=== PATIENT | male | born 1975 | race American Indian/Alaskan Native ===

== ENCOUNTER 2018-10-07 14:16 | Emergency (ER) | payer SELFPAY ==
[2018-10-07 14:32] VITALS: BP 125/78
--- NOTE | 2018-10-07 15:10 | Emergency Department Report ---
ED General Adult HPI - General Chief complaint: Chest Pain Stated complaint: CHEST PAIN/CHILLS Time Seen by Provider: 10/07/18 14:54 Source: patient Mode of arrival: Ambulatory Limitations: No Limitations - History of Present Illness Initial comments: Mr. Hawley is a very pleasant healthy 43-year-old male who has had flulike symptoms for the last few days. He's had body aches headache chills productive cough with chest tightness. +profuse diarrhea. Over the last several weeks, Mr. Hawley has noticed pressure in lower abdomen, urinary hesitation and frequent urination without dysuria. Now more pronounced when he appears to be dehydrated. -: Gradual, days(s) (2) Severity scale (0 -10): 5 Quality: aching Consistency: constant Improves with: none Associated Symptoms: fever/chills, malaise - Related Data Previous Rx's Medication Instructions Recorded Last Taken Type Loperamide HCl [Imodium A-D] 2 tab PO QID 2 Days #16 capsule 10/07/18 Unknown Rx Oseltamivir [Tamiflu] 75 mg PO BID 5 Days #10 cap 10/07/18 Unknown Rx Allergies Allergy/AdvReac Type Severity Reaction Status Date / Time shellfish derived Allergy Swelling Verified 10/07/18 14:27 ED Review of Systems ROS: Stated complaint: CHEST PAIN/CHILLS Other details as noted in HPI Comment: All other systems reviewed and negative Constitutional: chills, fever, malaise Respiratory: cough Cardiovascular: chest pain Gastrointestinal: diarrhea Genitourinary: urgency ED Past Medical Hx - Past Medical History Previous Medical History?: No - Surgical History Past Surgical History?: Yes Additional Surgical History: right testicle removed- 1997. 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, Also consults in medical facilities - Medications Home Medications: Home Medications Medication Instructions Recorded Confirmed Last Taken Type Loperamide HCl [Imodium A-D] 2 tab PO QID 2 Days #16 capsule 10/07/18 Unknown Rx Oseltamivir [Tamiflu] 75 mg PO BID 5 Days #10 cap 10/07/18 Unknown Rx ED Physical Exam - General Limitations: No Limitations General appearance: alert, in no apparent distress - Head Head exam: Present: atraumatic, normocephalic - Eye Eye exam: Present: normal appearance - ENT ENT exam: Present: mucous membranes moist - Neck Neck exam: Present: normal inspection, full ROM. Absent: tenderness, meningismus - Respiratory Respiratory exam: Present: normal lung sounds bilaterally. Absent: respiratory distress, wheezes, rales, rhonchi - Cardiovascular Cardiovascular Exam: Present: regular rate, normal rhythm, normal heart sounds. Absent: systolic murmur, diastolic murmur, rubs, gallop - GI/Abdominal GI/Abdominal exam: Present: soft, normal bowel sounds. Absent: distended, tenderness, guarding, rebound - Rectal Rectal exam: Present: deferred - Extremities Exam Extremities exam: Present: normal inspection - Back Exam Back exam: Present: normal inspection - Neurological Exam Neurological exam: Present: alert, oriented X3 - Psychiatric Psychiatric exam: Present: normal affect, normal mood - Skin Skin exam: Present: warm, dry, intact, normal color. Absent: rash ED Course Vital Signs 10/07/18 10/07/18 14:27 14:52 Temperature 99.2 F Pulse Rate 95 H Respiratory 18 16 Rate Blood Pressure 125/78 O2 Sat by Pulse 100 Oximetry ED Medical Decision Making - EKG Data EKG shows normal: sinus rhythm, axis, intervals, QRS complexes, ST-T waves Rate: normal - EKG Data Interpretation: normal EKG 10/07/18 15:09 Time Obtained 1437 NSR nl rate nl axis nl intervals no ST-T signs of ischemia no ST elevation rate 95 beats a minute - Medical Decision Making Clinical diagnoses of influenza, chest pain associated with cough without indication of pneumonia or pericarditis. Normal EKG. Prescription: Tamiflu and loperamide Urinary symptoms suggestive of benign prostate hypertrophy. Given referral to outpatient physician for follow-up. Critical care attestation.: If time is entered above; I have spent that time in minutes in the direct care of this critically ill patient, excluding procedure time. ED Disposition Clinical Impression: Influenza Disposition: DC-01 TO HOME OR SELFCARE Is pt being admited?: No Does the pt Need Aspirin: No Condition: Stable Instructions: Influenza (ED), Benign Prostatic Hypertrophy (ED) Prescriptions: Loperamide HCl [Imodium A-D] 2 tab PO QID 2 Days #16 capsule Oseltamivir [Tamiflu] 75 mg PO BID 5 Days #10 cap Referrals: DEMETRICE ZURITA DO [Staff Physician] - 3-5 Days Forms: Work/School Release Form(ED)
== END 2018-10-07 15:26 | disposition home or self-care (01) ==
LOC: ED 14:16
DX: J11.1 Influenza due to unidentified influenza virus with other respiratory manifestations (principal); Z91.013 Allergy to seafood
CPT/HCPCS: 93005; 93010; 99282

== ENCOUNTER 2020-01-30 20:47 | Observation (INO) | payer MEDICARE ==
[2020-01-30] MEDS ORDERED: ASPIRIN 325 MG TAB PO ONE (21:09)
[2020-01-30 21:23] LABS: Basophils # (Auto) 0.1 K/mm3 (0.0-0.1); Eosinophils # (Auto) 0.1 K/mm3 (0.0-0.4); Eosinophils % (Auto) 1.1 % (0.0-4.3); Hematocrit 41.9 % (35.5-45.6); Hemoglobin 14.2 gm/dl (11.8-15.2); Lymphocytes # (Auto) 1.8 K/mm3 (1.2-5.4); Lymphocytes % (Auto) 33.5 % (13.4-35.0); Mean Corpuscular HGB Conc 34 % (32-34); Mean Corpuscular Volume 89 fl (84-94); Monocytes # (Auto) 0.5 K/mm3 (0.0-0.8); Monocytes % (Auto) 9.3 % (0.0-7.3); Platelet Count 194 K/mm3 (140-440); Red Blood Count 4.73 M/mm3 (3.65-5.03); Red Cell Distribution Width 13.3 % (13.2-15.2)
--- NOTE | 2020-01-30 21:33 | XRay Report ---
CHEST 1 VIEW INDICATION / CLINICAL INFORMATION: Chest Pain. COMPARISON: None available. FINDINGS: SUPPORT DEVICES: None. HEART / MEDIASTINUM: No significant abnormality. LUNGS / PLEURA: No significant pulmonary or pleural abnormality. No pneumothorax. ADDITIONAL FINDINGS: No significant additional findings. IMPRESSION: No acute pulmonary or pleural abnormality. Signer Name: Terrence Enamorado MD FACR Signed: 01/30/2020 9:29 PM Workstation Name: [id number]
[2020-01-30 21:47] LABS: BUN/Creatinine Ratio 14; Blood Urea Nitrogen 15 mg/dL (9-20); Calcium 9.3 mg/dL (8.4-10.2); Hemolysis Index 10
[2020-01-30] MEDS ORDERED: NITROGLYCERIN 2% OINT 1 GM TP ONE (22:35)
[2020-01-30] MEDS ORDERED: ONDANSETRON 4 MG/2 ML INJ IV ONE (22:35)
[2020-01-30] MEDS ORDERED: fentaNYL 100 MCG/2 ML INJ IV ONE (22:35)
--- NOTE | 2020-01-30 22:41 | Emergency Department Report ---
HPI - General Chief Complaint: Chest Pain PUI?: No Time Seen by Provider: 01/30/20 22:25 - HPI HPI: Room 25 The patient is a 44-year-old male present with a chief complaint of chest pain. Patient states he awakened this morning with a substernal chest heaviness that is been constant. The patient states he has intermittent pushing pain on top of this heaviness. The patient states the heaviness radiates to his neck and thro at. Patient admits to shortness of breath but denies nausea/vomiting or diaphoresis. The patient currently gives his pain a score of 5/10. The patient states he is never had a stress test or cardiac catheterization ED Past Medical Hx - Past Medical History Previous Medical History?: Yes Additional medical history: Osteodysplasia - Surgical History Past Surgical History?: Yes Additional Surgical History: right testicle removed- 1997 (cancer prevention). hip surgery to place 2014 - Family History Family history: no significant - Social History Smoking Status: Never Smoker Substance Use Type: None (Denies illicit drug use) - Medications Home Medications: Home Medications Medication Instructions Recorded Confirmed Last Taken Type Loperamide HCl [Imodium A-D] 2 tab PO QID 2 Days #16 capsule 10/07/18 Unknown Rx Oseltamivir [Tamiflu] 75 mg PO BID 5 Days #10 cap 10/07/18 Unknown Rx ED Review of Systems ROS: Stated complaint: CHEST PAIN,TIGHTNESS IN THROAT,WEAK Other details as noted in HPI Constitutional: denies: diaphoresis Eyes: denies: eye pain ENT: throat pain Respiratory: shortness of breath Cardiovascular: chest pain Endocrine: no symptoms reported Gastrointestinal: denies: nausea, vomiting Genitourinary: denies: dysuria Musculoskeletal: denies: back pain Neurological: headache Physical Exam - Physical Exam Vital Signs: Vital Signs 01/30/20 01/30/20 01/30/20 21:00 21:26 22:26 Temperature 99.2 F Pulse Rate 87 74 71 Respiratory 18 12 Rate Blood Pressure 129/80 Blood Pressure 138/84 [Right] O2 Sat by Pulse 97 99 Oximetry Physical Exam: GENERAL: The patient is well-developed well-nourished male lying on stretcher not appearing to be in acute distress. [] HEENT: Normocephalic. Atraumatic. Extraocular motions are intact. Patient has moist mucous membranes. NECK: Supple. Trachea midline. No stridor CHEST/LUNGS: Clear to auscultation. There is no respiratory distress noted. HEART/CARDIOVASCULAR: Regular. There is no tachycardia. There is no gallop rub or murmur. ABDOMEN: Abdomen is soft, nontender. Patient has normal bowel sounds. There is no abdominal distention. SKIN: There is no rash. There is no edema. There is no diaphoresis. NEURO: The patient is awake, alert, and oriented. The patient is cooperative. The patient has normal speech MUSCULOSKELETAL: There is no evidence of acute injury. ED Course Vital Signs 01/30/20 01/30/20 01/30/20 21:00 21:26 22:26 Temperature 99.2 F Pulse Rate 87 74 71 Respiratory 18 12 Rate Blood Pressure 129/80 Blood Pressure 138/84 [Right] O2 Sat by Pulse 97 99 Oximetry ED Medical Decision Making - Lab Data Result diagrams: 01/30/20 21:11 01/30/20 21:11 Laboratory Tests 01/30/20 01/30/20 21:11 21:11 WBC 5.3 RBC 4.73 Hgb 14.2 Hct 41.9 MCV 89 MCH 30 MCHC 34 RDW 13.3 Plt Count 194 Lymph % (Auto) 33.5 [place] % (Auto) 9.3 H Eos % (Auto) 1.1 Baso % (Auto) 1.0 Lymph # 1.8 [place] # 0.5 Eos # 0.1 Baso # 0.1 Seg Neutrophils % 55.1 Seg Neutrophils # 2.9 Sodium 137 Potassium 3.8 Chloride 98.6 Carbon Dioxide 22 Anion Gap 20 BUN 15 Creatinine 1.1 Estimated GFR > 60 BUN/Creatinine Ratio 14 Glucose 93 Calcium 9.3 Troponin T < 0.010 - EKG Data -: EKG Interpreted by Me EKG shows normal: sinus rhythm Rate: normal - EKG Data When compared to previous EKG there are: no significant change Interpretation: unchanged when compared t (10/07/2018) - Radiology Data Radiology results: report reviewed (Chest x-ray), image reviewed (Chest x-ray) interpreted by me: Chest x-ray-no focal infiltrates, no pneumothorax Findings [facility] [address] [place] [address] XRay Report Signed Patient: ОЛЕГ LYNCH MR#: [id number] : 1975 Acct:[id number] Age/Sex: 44 / M ADM Date: 01/30/20 Loc: ED Attending Dr: Ordering Physician: ABDIRAHMAN GUAJARDO MD Date of Service: 01/30/20 Procedure(s): XR chest 1V ap Accession Number(s): [id number] cc: ED MD BENNETT Fluoro Time In Minutes: CHEST 1 VIEW INDICATION / CLINICAL INFORMATION: Chest Pain. COMPARISON: None available. FINDINGS: SUPPORT DEVICES: None. HEART / MEDIASTINUM: No significant abnormality. LUNGS / PLEURA: No significant pulmonary or pleural abnormality. No pneumothorax. ADDITIONAL FINDINGS: No significant additional findings. IMPRESSION: No acute pulmonary or pleural abnormality. Signer Name: Terrence Enamorado MD FACR Signed: 01/30/2020 9:29 PM Workstation Name: [id number] Transcribed By: MS Dictated By: Terrence Enamorado MD Electronically Authenticated By: Terrence Enamorado MD Signed Date/Time: 01/30/202128 DD/ 28 TD/TT: - Differential Diagnosis ACS, pericarditis, GERD Critical care attestation.: If time is entered above; I have spent that time in minutes in the direct care of this critically ill patient, excluding procedure time. ED Disposition Clinical Impression: Chest pain Disposition: DC-09 OP ADMIT IP TO THIS HOSP Is pt being admited?: Yes Does the pt Need Aspirin: Yes Condition: Fair Instructions: Chest Pain (ED) Referrals: PRIMARY CARE, [Primary Care Provider] - 3-5 Days Time of Disposition: 22:44 (Hospitalist paged (Dr Pettit))
[2020-01-30] MEDS ORDERED: ACETAMINOPHEN 325 MG TAB PO PRN (22:56)
[2020-01-30] MEDS ORDERED: MAGNESIUM HYDROXIDE (MOM) ORAL LIQD UDC PO PRN (22:56)
[2020-01-30] MEDS ORDERED: ONDANSETRON 4 MG/2 ML INJ IV PRN (22:56)
[2020-01-30] MEDS ORDERED: MORPHINE 2 MG/1 ML INJ IV PRN (22:56)
[2020-01-30] MEDS ORDERED: NITROGLYCERIN 0.4 MG TAB SUBL SL PRN (22:56)
[2020-01-30] MEDS ORDERED: CLOPIDOGREL 300 MG TAB PO ONE (23:00)
[2020-01-30] MEDS ORDERED: CLOPIDOGREL 300 MG TAB ONE (23:03)
--- NOTE | 2020-01-30 23:58 | History and Physical Report ---
History of Present Illness Date of examination: 01/30/20 Date of admission: 01/30/20 22:51 Chief complaint: Chest Pain History of present illness: 44-year-old male with with no significant past medical history presenting to the emergency room today complaining of substernal chest pain. Chest pain is said to have been intermittent initially and then became constant throughout the day. It felt like heaviness on his chest and radiating towards the neck and the jaw. He had some associated shortness of breath but denies any fever or chills, known nausea vomiting, no abdominal pain, no headache or dizziness. There is no no relieving or exacerbating factor for his chest pain. Pain was about 5 on a scale of 10. Patient denies any sick contacts and no recent travel. He has not had any cardiac work-up in the past. Work-up so far in the emergency room has been unremarkable. Past History Past Medical History: other (History of dysplasia) Past Surgical History: Other (Right hip surgery in 3015) Family history: other (Mother has history of crohn's disease and fibromyalgia) Medications and Allergies Allergies Allergy/AdvReac Type Severity Reaction Status Date / Time shellfish derived Allergy Swelling Verified 10/07/18 14:27 Home Medications Medication Instructions Recorded Confirmed Last Taken Type Loperamide HCl [Imodium A-D] 2 tab PO QID 2 Days #16 capsule 10/07/18 01/31/20 01/29/20 Rx Oseltamivir [Tamiflu] 75 mg PO BID 5 Days #10 cap 10/07/18 01/31/20 01/29/20 Rx Active Meds: Active Medications Acetaminophen (Tylenol) 650 mg PO Q4H PRN PRN Reason: Pain MILD(1-3)/Fever >100.5/LOGAN Aspirin (Ecotrin) 325 mg PO QDAY LESLIE Magnesium Hydroxide (Milk Of Magnesia) 30 ml PO Q4H PRN PRN Reason: Constipation Morphine Sulfate (Morphine) 2 mg IV Q5MIN PRN PRN Reason: Chest Pain unrelieved by NTG Nitroglycerin (Nitrostat) 0.4 mg SL Q5M PRN PRN Reason: Chest Pain Ondansetron HCl (Zofran) 4 mg IV Q8H PRN PRN Reason: Nausea And Vomiting Sodium Chloride (Sodium Chloride Flush Syringe 10 Ml) 10 ml IV BID LESILE Sodium Chloride (Sodium Chloride Flush Syringe 10 Ml) 10 ml IV PRN PRN PRN Reason: LINE FLUSH Review of Systems Constitutional: no fever, no chills Cardiovascular: chest pain, no palpitations Respiratory: no cough, no shortness of breath Gastrointestinal: no nausea, no vomiting, no diarrhea Genitourinary Male: no dysuria, no nocturia Musculoskeletal: no neck pain, no low back pain Integumentary: no rash, no pruritis Neurological: no headaches, no confusion Psychiatric: no anxiety, no depression Exam - Constitutional Vitals: Temp Pulse Resp BP Pulse Ox 99.2 F 74 16 141/82 98 01/30/20 21:00 01/30/20 22:58 01/30/20 22:56 01/30/20 22:58 01/30/20 22:56 General appearance: Present: no acute distress, well-nourished - EENT Eyes: Present: PERRL, EOM intact ENT: hearing intact, clear oral mucosa, dentition normal - Neck Neck: Present: supple, normal ROM - Respiratory Respiratory effort: normal Respiratory: bilateral: CTA - Cardiovascular Rhythm: regular Heart Sounds: Present: S1 & S2 - Extremities Extremities: no ischemia, pulses intact, pulses symmetrical, No edema, Full ROM Peripheral Pulses: within normal limits - Abdominal General gastrointestinal: Present: soft, non-tender, non-distended, normal bowel sounds - Integumentary Integumentary: Present: clear, warm, dry - Musculoskeletal Musculoskeletal: strength equal bilaterally - Psychiatric Psychiatric: appropriate mood/affect, intact judgment & insight, cooperative - Neurologic Neurologic: CNII-XII intact, moves all extremities HEART Score - HEART Score Troponin: Troponin T < 0.010 ng/mL (0.00-0.029) 01/30/20 21:11 Results - Labs CBC & Chem 7: 01/30/20 21:11 01/30/20 21:11 Labs: Abnormal lab results 01/30/20 Range/Units 21:11 [place] % (Auto) 9.3 H (0.0-7.3) % Assessment and Plan - Patient Problems (1) Chest pain Current Visit: Yes Status: Acute Plan to address problem: Patient admitted and placed on telemetry. Will trend cardiac enzymes. Patient is placed on aspirin, sublingual nitroglycerin and IV morphine as needed for chest pain. Patient will be scheduled for stress test. (2) DVT prophylaxis Current Visit: Yes Status: Acute Plan to address problem: Patient placed on subcutaneous heparin (3) Full code status Current Visit: Yes Status: Acute
[2020-01-31 05:42] LABS: Basophils % (Auto) 0.6 % (0.0-1.8); Eosinophils # (Auto) 0.1 K/mm3 (0.0-0.4); Eosinophils % (Auto) 2.7 % (0.0-4.3); Hematocrit 40.8 % (35.5-45.6); Hemoglobin 13.2 gm/dl (11.8-15.2); Lymphocytes # (Auto) 1.9 K/mm3 (1.2-5.4); Lymphocytes % (Auto) 44.7 % (13.4-35.0); Mean Corpuscular HGB Conc 32 % (32-34); Mean Corpuscular Volume 90 fl (84-94); Monocytes # (Auto) 0.4 K/mm3 (0.0-0.8); Monocytes % (Auto) 10.2 % (0.0-7.3); Platelet Count 176 K/mm3 (140-440); Red Blood Count 4.53 M/mm3 (3.65-5.03); Red Cell Distribution Width 13.4 % (13.2-15.2)
[2020-01-31 05:51] LABS: INR 0.98 (0.87-1.13)
[2020-01-31 05:57] LABS: BUN/Creatinine Ratio 17; Blood Urea Nitrogen 19 mg/dL (9-20); Hemolysis Index 2
[2020-01-31] MEDS ORDERED: hydrALAZINE 20 MG/1 ML INJ IV PRN (06:22)
[2020-01-31] MEDS: HEPARIN 5,000 UNIT/1 ML VIAL SUB-Q SCH ×2 (06:50→16:07)
[2020-01-31] MEDS ORDERED: REGADENOSON 0.4 MG/5 ML INJ IV ONE ×2 (07:51→07:57)
[2020-01-31] MEDS ORDERED: ASPIRIN EC 325 MG TAB PO SCH (10:00)
--- NOTE | 2020-01-31 11:04 | Consultation ---
History of Present Illness Consult date: 01/31/20 Requesting physician: ANGELIKA CUNNINGHAM Consult reason: chest pain History of present illness: 44-year-old male with no hypertension diabetes cholesterol presents with midsternal chest pain nonradiating pressure-like with severe nature patient received pain medications better now. Denies any previous episodes of chest pain or syncope or palpitations fever or chills. Patient stress test showed good exercise capacity 12 minutes of Jordan protocol with no EKG changes with normal myocardial perfusion. Past History Past Medical History: other (History of dysplasia) Past Surgical History: Other (Right hip surgery in 3015) Family history: other (Mother has history of crohn's disease and fibromyalgia) Medications and Allergies Allergies Allergy/AdvReac Type Severity Reaction Status Date / Time shellfish derived Allergy Swelling Verified 10/07/18 14:27 Home Medications Medication Instructions Recorded Confirmed Last Taken Type Loperamide HCl [Imodium A-D] 2 tab PO QID 2 Days #16 capsule 10/07/18 01/31/20 01/29/20 Rx Oseltamivir [Tamiflu] 75 mg PO BID 5 Days #10 cap 10/07/18 01/31/20 01/29/20 Rx Active Meds: Active Medications Acetaminophen (Tylenol) 650 mg PO Q4H PRN PRN Reason: Pain MILD(1-3)/Fever >100.5/LOGAN Aspirin (Ecotrin) 325 mg PO QDAY [facility] Heparin Sodium (Porcine) (Heparin) 5,000 unit SUB-Q Q8HR [facility] Last Admin: 01/31/20 06:50 Dose: Not Given Documented by: Magnesium Hydroxide (Milk Of Magnesia) 30 ml PO Q4H PRN PRN Reason: Constipation Morphine Sulfate (Morphine) 2 mg IV Q5MIN PRN PRN Reason: Chest Pain unrelieved by NTG Nitroglycerin (Nitrostat) 0.4 mg SL Q5M PRN PRN Reason: Chest Pain Ondansetron HCl (Zofran) 4 mg IV Q8H PRN PRN Reason: Nausea And Vomiting Sodium Chloride (Sodium Chloride Flush Syringe 10 Ml) 10 ml IV BID ELSLIE Sodium Chloride (Sodium Chloride Flush Syringe 10 Ml) 10 ml IV PRN PRN PRN Reason: LINE FLUSH Review of Systems All systems: negative (as per hpi) Physical Examination Vital Signs Temp Pulse Resp BP Pulse Ox 99.2 F 87 18 129/80 97 01/30/20 21:00 01/30/20 21:00 01/30/20 21:00 01/30/20 21:00 01/30/20 21:00 General appearance: no acute distress, well-nourished HEENT: Positive: PERRL, Mucus Membranes Moist Neck: Positive: neck supple, trachea midline Cardiac: Positive: Reg Rate and Rhythm, S1/S2. Negative: Audible Murmur Lungs: Positive: clear to auscultation, Normal Breath Sounds Neuro: Positive: Grossly Intact Abdomen: Positive: Soft, Active Bowel Sounds. Negative: Tender, Distended Male genitourinary: Positive: normal Skin: Positive: Clear Incision: Cardiac Cath Site Musculoskeletal: No Pain, Normal Range of Motion Extremities: Present: normal. Absent: edema Results 01/31/20 05:14 01/31/20 05:14 Coagulation 01/31/20 Range/Units 05:14 PT 12.8 (12.2-14.9) Sec. INR 0.98 (0.87-1.13) CBC 01/30/20 01/31/20 Range/Units 21:11 05:14 WBC 5.3 4.2 L (4.5-11.0) K/mm3 RBC 4.73 4.53 (3.65-5.03) M/mm3 Hgb 14.2 13.2 (11.8-15.2) gm/dl Hct 41.9 40.8 (35.5-45.6) % Plt Count 194 176 (140-440) K/mm3 Lymph # 1.8 1.9 (1.2-5.4) K/mm3 [place] # 0.5 0.4 (0.0-0.8) K/mm3 Eos # 0.1 0.1 (0.0-0.4) K/mm3 Baso # 0.1 0.0 (0.0-0.1) K/mm3 Comprehensive Metabolic Panel 01/30/20 01/31/20 Range/Units 21:11 05:14 Sodium 137 138 (137-145) mmol/L Potassium 3.8 4.2 (3.6-5.0) mmol/L Chloride 98.6 100.0 (98-107) mmol/L Carbon Dioxide 22 25 (22-30) mmol/L BUN 15 19 (9-20) mg/dL Creatinine 1.1 1.1 (0.8-1.5) mg/dL Glucose 93 101 H (75-100) mg/dL Calcium 9.3 9.0 (8.4-10.2) mg/dL - Imaging and Cardiology Stress echo: report reviewed (Normal myocardial perfusion with good exercise capacity 12 minutes Jordan protocol) EKG interpretations - Telemetry EKG Rhythm: Sinus Rhythm (Normal sinus rhythm no ST-T abnormality) Assessment and Plan 44-year-old patient with no past medical history as atypical chest pain with good exercise. Probable costochondritis versus GI continue risk factor modific ation may be discharged from a cardiovascular point of view - Patient Problems (1) Chest pain Current Visit: Yes Status: Acute Qualifiers: Chest pain type: unspecified Qualified Code(s): R07.9 - Chest pain, unspecified
--- NOTE | 2020-01-31 11:23 | Treadmill Report ---
NUCLEAR PERFUSION STRESS TEST REASON FOR STUDY: Chest pain. READING PHYSICIAN: Dr. Hooper IMAGING PROTOCOL: The patient received 10 mCi of Technetium 99m Tetrofosmin for resting image and 28 mCi of Technetium 99m Tetrofosmin for stress imaging. The imaging for the whole procedure was completed 30-90 minutes following the initial injection of Technetium 99m Tetrofosmin. The SPECT imaging in the 180 degree arc was performed in the right anterior oblique projection. Computerized reconstruction of the images was performed for analysis.. IMAGING RESULTS: Normal cavity size from stress to rest. Normal distribution of radionuclide in the anterior, inferior, septal, and apical regions. Gated SPECT, EF 56% with no wall motion abnormality. The patient exercised on Jordan protocol for 12 minutes. No EKG changes to suggest ischemia, no exaggerated BP response to exercise. SUMMARY: 1. Negative treadmill EKG. 2. Good exercise capacity 12 minutes Jordan protocol. 3. No exaggerated BP response to exercise. 4. Normal rest and stress myocardial perfusion scan. No significant ischemia. No wall motion abnormality. Gated SPECT, EF 56%. JOB# [id number] VRM/NTS
--- NOTE | 2020-01-31 18:35 | Discharge Summary ---
Providers - Providers Date of Admission: 01/30/20 22:51 Date of discharge: 01/31/20 Attending physician: ANGELIKA CUNNIGNHAM 01/30/20 Consult to Cardiac Rehabilitation [CONS] Routine Reason For Exam: Phase I 01/30/20 22:56 Consult to Cardiology [CONS] Routine Consulting Provider: SHAYAN RICH Reason For Exam: chest pain Primary care physician: HEMSTITCHER Hospitalization Condition: Fair Hospital course: 44-year-old male with with no significant past medical history presenting to the emergency room today complaining of substernal chest pain. Chest pain is said to have been intermittent initially and then became constant throughout the day. It felt like heaviness on his chest and radiating towards the neck and the jaw. He had some associated shortness of breath but denies any fever or chills, known nausea vomiting, no abdominal pain, no headache or dizziness. There is no no relieving or exacerbating factor for his chest pain. Pain was about 5 on a scale of 10. Patient denies any sick contacts and no recent travel. He has not had any cardiac work-up in the past. Work-up so far in the emergency room has been unremarkable. Patient stress test showed good exercise capacity 12 minutes of Jordan protocol with no EKG changes with normal myocardial perfusion. has chest wall tenderness c/w costochondritis (1) Chest pain Current Visit: Yes Status: Acute Plan to address problem: Lexiscan negative (2 Costochondritis 'Meloxicam 7.5 mg po bid Disposition: - TO HOME OR SELFCARE Core Measure Documentation - Palliative Care Palliative Care/ Comfort Measures: Not Applicable - Core Measures Any of the following diagnoses?: none Exam - Constitutional Vitals: Temp Pulse Resp BP Pulse Ox 98.4 F 72 18 125/82 93 01/31/20 07:54 01/31/20 16:28 01/31/20 07:54 01/31/20 09:22 01/31/20 04:09 General appearance: Present: no acute distress, well-nourished - EENT Eyes: Present: PERRL ENT: hearing intact, clear oral mucosa - Neck Neck: Present: supple, normal ROM - Respiratory Respiratory effort: normal Respiratory: bilateral: CTA - Cardiovascular Heart rate: 78 Rhythm: regular Heart Sounds: Present: S1 & S2. Absent: rub, click Details: cHEST WALL TENDERNESS - Extremities Extremities: pulses symmetrical, No edema Peripheral Pulses: within normal limits - Abdominal General gastrointestinal: Present: soft, non-tender, non-distended, normal bowel sounds Male genitourinary: Present: normal - Integumentary Integumentary: Present: clear, warm, dry - Musculoskeletal Musculoskeletal: gait normal, strength equal bilaterally - Psychiatric Psychiatric: appropriate mood/affect, intact judgment & insight - Neurologic Neurologic: CNII-XII intact, moves all extremities Plan Activity: no restrictions Diet: regular Follow up with: PRIMARY CAREMD [Primary Care Provider] - 3-5 Days REMI AMAYA MD [Staff Physician] - 7 Days
[2020-01-31 19:58] VITALS: BP 117/65
== END 2020-01-31 21:15 | disposition home or self-care (01) ==
LOC: ED 20:47 → 4A 22:51
PROVIDERS: ADMIT Internal Medicine Geriatric Medicine; ATTEND Internal Medicine
DX: M94.0 Chondrocostal junction syndrome [Tietze] (principal); Z90.79 Acquired absence of other genital organ(s); Z79.899 Other long term (current) drug therapy; Z91.013 Allergy to seafood
CPT/HCPCS: 36415; 71045; 78452; 80048; 84484; 85025; 85610; 93005; 93017; 96374; 96375; 99285; A9502; G0378; J2405; J3010; J1644; J2785

== ENCOUNTER 2021-08-29 14:14 | Emergency (ER) | payer MEDICARE ==
[2021-08-29 15:02] VITALS: BP 126/77
== END 2021-08-29 16:00 | disposition left against medical advice (07) ==
LOC: ED 14:14
DX: U07.1 COVID-19 (principal); Z53.21 Procedure and treatment not carried out due to patient leaving prior to being seen by health care provider